=== PATIENT | male | born 1990 | race Caucasian/White ===

== ENCOUNTER 2018-12-22 09:50 | Day surgery (SDC) | payer BC ==
[~2018-12-22] VITALS: Ht 170.2 cm; Wt 71.4 kg
[2018-12-22] VITALS (11 sets, daily range): BP systolic 102–124; BP diastolic 59–72; PULSE 36–70; RESP 16–34; Ht 170.2 cm; Wt 71.4 kg
[~2018-12-22 09:50] MED LIST: CEFAZOLIN 2 GM/50 ML (PMX) 50 ML IVPB SCH; SOD CHLORIDE 0.9% 1,000 ML IV SCH
[2018-12-22] MEDS ORDERED: LISD40CA3 PO (10:47)
[2018-12-22] MEDS ORDERED: ARIP15TA3 PO (10:47)
--- NOTE | 2018-12-22 11:14 | PREAC ---
Date/Time of Note Date/Time of Note DATE: 12/22/18 TIME: 11:12 Anesthesia Eval and Record Evaluation Time Pre-Procedure Interview DATE: 12/22/18 TIME: 11:12 Age 28 Sex male NPO: 8 hrs Preoperative diagnosis ANAL WARTS Planned procedure eua, EXCISION ANAL WARTS Past Medical History Past Medical History: None Surgery & Anesthesia Issues No known issue Meds Anticoagulation: No Beta Yane within 24 hr: No Reason Beta Yane not given: Pt. not on B-Yane Reported Medications Lisdexamfetamine Dimesylate (Vyvanse) 40 Mg Capsule, 40 MG PO AM, CAP 12/22/18 Aripiprazole* (Abilify*) 15 Mg Tablet, 15 MG PO DAILY, #30 TAB 12/22/18 Current Medications Sodium Chloride 1,000 ml @ 75 mls/hr [id number] IV Last administered on 12/22/18at 10:53; Admin Dose 75 MLS/HR; Start 12/22/18 at 07:30 Meds reviewed: Yes Allergies Coded Allergies: No Known Allergy (Unverified , 12/22/18) Allergies Reviewed: Yes Labs/Studies Labs Reviewed: Reviewed by anesthesiologist test: N/A Studies: ECG (N/A), CXR (N/A) Pre-procedure Exam Last vitals Vital Signs Date Temp Pulse Resp B/P (MAP) Pulse Ox O2 O2 Flow FiO2 Time Delivery Rate 12/22/18 98.0 70 16 102/59 97 Room Air 10:42 (73) Airway: Adequate mouth opening Mallampati: Mallampati I Teeth: Normal Lung: Normal Heart: Normal ASA Physical Status ASA physical status: 1 Emergency: None Planned Anesthetic General/MAC: ETT Planned Pain Management Parenteral pain med Pre-operative Attestations Prior to commencing anesthesia and surgery, the patient was re-evaluated, there was verification of: *The patient's identity *The results of appropriate recent lab work and preoperative vital signs *The above evaluation not changing prior to induction *Anesthetic plan, risk benefits, alternative and complications discussed with patient/family; questions answered; patient/family understands, accepts and wishes to proceed. LUTHER JENNINGS MD December 22, 2018 11:14
[2018-12-22] MEDS ORDERED: BUPIVACAINE 0.25%/EPI (SDV) 30 ML INJ ONE (11:16)
[2018-12-22] MEDS ORDERED: GLYCOPYRROLATE 0.4 MG INJ ONE (11:22)
[2018-12-22] MEDS ORDERED: ONDANSETRON 4 MG INJ ONE (11:22)
[2018-12-22] MEDS ORDERED: METOCLOPRAMIDE 10 MG INJ ONE (11:22)
[2018-12-22] MEDS ORDERED: ROCURONIUM 50 MG INJ ONE (11:22)
[2018-12-22] MEDS ORDERED: MIDAZOLAM 1 MG/ML 2 ML INJ ONE (11:22)
[2018-12-22] MEDS ORDERED: NEOSTIGMINE 3 MG/3 ML SYRINGE ONE (11:22)
[2018-12-22] MEDS ORDERED: PROPOFOL 20 ML ONE (11:22)
[2018-12-22] MEDS ORDERED: KETOROLAC 30 MG INJ ONE (11:24)
[2018-12-22] MEDS ORDERED: FENTAnyl 50 MCG/ML VIAL IV PRN ×3 (11:30)
[2018-12-22] MEDS ORDERED: MEPERIDINE 25 MG INJ IV PRN (11:30)
[2018-12-22] MEDS ORDERED: OXYCODONE/ACETAMINOPHEN (5/325) TAB PO PRN ×2 (11:30)
[2018-12-22] MEDS ORDERED: HYDROmorphONE 1 MG/5 ML IV SYRINGE IV PRN ×3 (11:30)
[2018-12-22] MEDS ORDERED: ONDANSETRON 4 MG INJ IV PRN (11:30)
[2018-12-22] MEDS ORDERED: KETOROLAC 30 MG INJ IV PRN ×2 (11:30→12:30)
[2018-12-22] MEDS ORDERED: DIPHENHYDRAMINE 50 MG INJ IV PRN (11:30)
[2018-12-22] MEDS ORDERED: CEFAZOLIN 1 GM INJ ONE (11:37)
[2018-12-22] MEDS ORDERED: BACITRACIN/POLYMYXIN 28.35 GM OINT TOP ONE (12:05)
--- NOTE | 2018-12-22 12:11 | OPR ---
Date/Time of Note Date/Time of Note DATE: 12/22/18 TIME: 12:05 Operative Report Procedure Date: December 22, 2018 Preoperative Diagnosis Anal polyp Postoperative Diagnosis Anal polyp Operation/Procedure Performed 1. Exam under anesthesia 2. 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 Hemorrhoids. He was scheduled for elective exam under anesthesia and excision of the anal polyp for symptom relief and definitive pathological diagnosis. All risks and benefits of the procedure including, but not limited to: Wound infection, excessive bleeding, prolonged wound healing, incontinence to stool/feces which may be temporary versus permanent, anal stricture, anal polyp/condyloma recurrence, etc. were all explained to the patient in full detail. The patient fully understood and wished to proceed with the procedure. Informed consent was obtained. The patient was instructed to take enemas the day before and morning of surgery. Procedure Description Patient was brought to the operating room and kept on his stretcher. Bilateral sequential compression devices were placed on both lower extremities. A dose of broad-spectrum perioperative intravenous antibiotics was given. After the induction of smooth general anesthesia the patient was positioned in the prone position with all pressure points padded. The anus, perineum and buttocks were prepped and draped in standard surgical fashion. After performance of the surgical timeout 0.25% Marcaine with epinephrine was injected around the anus. Exam under anesthesia did not show any fissures or fistulas. In the posterior midline of the anal canal there was a polypoid lesion identified. This was grasped with a Rincon clamp and transected at its base using a vessel sealing device. Specimen was passed off the field. The base of the lesion was cauterized. There were no other masses identified. Hemostasis was then inspected for and noted to be adequate. Irrigation was performed. The anal canal comfortably fit 2 fingers upon completion of the procedure. Further local anesthesia was then injected around the anus. Bacitracin ointment was applied as well as sterile dressings. The patient was then awoken from anesthesia and transferred to recovery room in stable condition. All counts were correct at the end of the case 2. NIK DE OLIVEIRA MD December 22, 2018 12:11
[2018-12-22] MEDS ORDERED: IBUPROFEN 600 MG TAB PO PRN (12:30)
[2018-12-22] MEDS ORDERED: HYDROCODONE/APAP (5/325) TAB PO PRN ×2 (12:30)
--- NOTE | 2018-12-23 08:41 | PAC ---
Date/Time of Note Date/Time of Note DATE: 12/23/18 TIME: 08:41 Post-Anesthesia Notes Post-Anesthesia Note Last documented vital signs Vital Signs Date Temp Pulse Resp B/P (MAP) Pulse Ox O2 O2 Flow FiO2 Time Delivery Rate 12/22/18 97.1 56 16 115/70 97 13:10 (85) 12/22/18 Room Air 12:58 12/22/18 8.0 12:28 Activity: WNL Respiratory function: WNL Cardiovascular function: WNL Mental status: Baseline Pain reasonably controlled: Yes Hydration appropriate: Yes Nausea/Vomiting absent: No LUTHER JENNINGS MD December 23, 2018 08:41
== END 2018-12-22 13:55 | disposition home or self-care (01) ==
LOC: SDS 09:50
PROVIDERS: ATTEND Surgery
DX: K64.4 Residual hemorrhoidal skin tags (principal)
CPT/HCPCS: 46924; 88305; J0690; J1885; J2250; J2405; J2710; J2765; Z7512; Z7610